=== PATIENT | male | born 1990 | race Caucasian/White ===

== ENCOUNTER 2022-09-20 01:11 | Emergency (ER) | payer OTHER ==
[2022-09-20] MEDS ORDERED: Bacitracin 1 PK ONE (01:41)
== END 2022-09-20 01:50 ==
LOC: EEVIPCON 01:11 → NAV ERS 01:11
DX: S01.01XA Laceration without foreign body of scalp, initial encounter (principal); J45.909 Unspecified asthma, uncomplicated; E11.9 Type 2 diabetes mellitus without complications; K21.9 Gastro-esophageal reflux disease without esophagitis; I10 Essential (primary) hypertension; Z79.84 Long term (current) use of oral hypoglycemic drugs; Z79.899 Other long term (current) drug therapy; W22.8XXA Striking against or struck by other objects, initial encounter
CPT/HCPCS: 12002